=== PATIENT | female | born 1970 | race Caucasian/White ===

== ENCOUNTER 2016-05-15 13:43 | Emergency (ER) | payer MEDICAID ==
[2016-05-15] MEDS ORDERED: ONDANSETRON 4 MG VIAL ONE (16:33)
[2016-05-15] MEDS ORDERED: MORPHINE 4 MG/ML SYR ONE (16:33)
== END 2016-05-15 18:50 | disposition home or self-care (01) ==
LOC: ER 13:43
DX: R10.2 Pelvic and perineal pain (principal); N83.201 Unspecified ovarian cyst, right side; D25.9 Leiomyoma of uterus, unspecified; F17.210 Nicotine dependence, cigarettes, uncomplicated; F32.9 Major depressive disorder, single episode, unspecified; Z98.1 Arthrodesis status; Z79.899 Other long term (current) drug therapy
CPT/HCPCS: 36415; 76830; 80053; 81003; 83690; 84703; 85025; 87491; 87591; 87800; 96374; 96375